=== PATIENT | male | born 1960 | race Caucasian/White ===

== ENCOUNTER 2018-04-24 12:10 | Emergency (ER) | payer BC, OTHER ==
[2018-04-24] MEDS ORDERED: TORAdol 30 mg Injection IV ONE (12:36)
[2018-04-24] MEDS ORDERED: Ativan 2 MG/1 ML VIAL IV ONE (12:36)
--- NOTE | 2018-04-24 12:36 | ERPHSYRPT ---
- History of Present Illness Time Seen by Provider: 04/24/18 12:32 Source: patient, family Exam Limitations: no limitations Patient Subjective Stated Complaint: pt co lower right back pain while sitting in camper,no injury noted, but states he lifts things all the time, Triage Nursing Assessment: pt alert, resp easy, skin w/d/p. skin w/d/p, no difficulty with urnination. pt moaning out, Physician History: The patient is a 58-year-old male with his complaining that he had a sudden onset of right sided mid to lower back pain that began yesterday early evening while he was frying potatoes. He has intermittent mild back pain from time to time. He denies problems urinating or defecating. He denies any sensory problems. He denies nausea or vomiting. He states that the muscle on the right side of his back will spasm every so often with high intensity. He has a history of kidney stones. He says this is nothing like the feeling has with kidney stones. Timing/Duration: yesterday, intermittent, sudden Method of Injury: bending Quality: sharp Back Pain Location: paraspinous muscles (right) Severity of Pain-Max: severe Severity of Pain-Current: severe Modifying Factors: Improves With: nothing Associated Symptoms: lower back pain, muscle spasms, No urinary incontinence, No loss of bowel control, No nausea, No vomiting, No problems urinating, No numbness in legs/feet Previous symptoms: same symptoms as today (previously not as intense ) Allergies/Adverse Reactions: Penicillins Allergy (Verified 04/24/18 12:28) Hx Influenza Vaccination/Date Given: No Hx Pneumococcal Vaccination/Date Given: No Immunizations Up to Date: Yes - Review of Systems Constitutional: No Fever, No Chills Eyes: No Symptoms Ears, Nose, & Throat: No Symptoms Respiratory: No Cough, No Dyspnea Cardiac: No Chest Pain, No Edema, No Syncope Abdominal/Gastrointestinal: No Abdominal Pain, No Nausea, No Vomiting, No Diarrhea Genitourinary Symptoms: No Dysuria Musculoskeletal: Back Pain Skin: No Rash Neurological: No Dizziness, No Focal Weakness, No Sensory Changes Psychological: No Symptoms Endocrine: No Symptoms Hematologic/Lymphatic: No Symptoms Immunological/Allergic: No Symptoms All Other Systems: Reviewed and Negative - Past Medical History Pertinent Past Medical History: Yes Neurological History: Stroke Other Medical History: kidney stone, right knee injury - Past Surgical History Past Surgical History: Yes Gastrointestinal: Hernia Repair Musculoskeletal: Orthopedic Surgery Other Surgical History: ankle - Social History Smoking Status: Never smoker Exposure to second hand smoke: No Drug Use: none Patient Lives Alone: No - Nursing Vital Signs Nursing Vital Signs: Pain Scale Pain Intensity [Back] 10 Pain Intensity 10 - Physical Exam General Appearance: moderate distress Eye Exam: PERRL/EOMI, eyes nml inspection Ears, Nose, Throat Exam: normal ENT inspection Neck Exam: normal inspection, non-tender, supple, full range of motion, No meningismus, No midline tenderness Respiratory Exam: normal breath sounds, lungs clear, No respiratory distress Cardiovascular Exam: regular rate/rhythm, normal heart sounds Gastrointestinal Exam: soft, No tenderness, No mass Rectal Exam: not done Back Exam: muscle spasm (right thoracic and lumbar paraspinous with extreme tenderness) Extremity Exam: normal inspection, normal range of motion, No calf tenderness, No pedal edema Neurologic Exam: alert, oriented x 3, cooperative, azure principal solution specialist II-XII nml as tested, normal mood/affect, nml station & gait, sensation nml, No motor deficits Skin Exam: normal color, warm, dry, No rash SpO2 Interpretation: normal Oxygen Delivery: Room Air Ordered Tests: Medication Summary Discontinued Medications Generic Name Dose Route Start Last Admin Trade Name [place] PRN Reason Stop Dose Admin Dexamethasone Sodium Phosphate 10 mg 04/24/18 12:37 04/24/18 12:41 Decadron 10mg Inj. IV 04/24/18 12:38 10 mg STAT ONE Administration Dexamethasone Sodium Phosphate Confirm 04/24/18 12:40 Decadron 10mg Inj. Administered 04/24/18 12:41 Dose 10 mg .ROUTE .STK-MED ONE Diphenhydramine HCl 50 mg 04/24/18 12:37 04/24/18 12:41 Benadryl 50 Mg/Ml IV 04/24/18 12:38 50 mg STAT ONE Administration Diphenhydramine HCl Confirm 04/24/18 12:40 Benadryl 50 Mg/Ml Administered 04/24/18 12:41 Dose 50 mg .ROUTE .STK-MED ONE Ketorolac Tromethamine 30 mg 04/24/18 12:36 04/24/18 12:42 Toradol 30 Mg Injection IV 04/24/18 12:37 30 mg STAT ONE Administration Ketorolac Tromethamine Confirm 04/24/18 12:40 Toradol 30 Mg Injection Administered 04/24/18 12:41 Dose 30 mg .ROUTE .STK-MED ONE Lorazepam 2 mg 04/24/18 12:36 04/24/18 12:41 Ativan 2 Mg/1 Ml Vial IV 04/24/18 12:37 2 mg STAT ONE Administration Lorazepam Confirm 04/24/18 12:40 Ativan 2 Mg/1 Ml Vial Administered 04/24/18 12:41 Dose 2 mg .ROUTE .STK-MED ONE - Progress Progress: improved Progress Note: 04/24/18 13:37 Pt given decadron 10 mg, toradol 30 mg, ativan 2 mg, and benadryl 50 mg by IV with improvement. Counseled pt/family regarding: diagnosis - Departure Time of Disposition: 13:38 Departure Disposition: Home Clinical Impression: Back muscle spasm Condition: Stable Critical Care Time: No Referrals: ORLANDO GALEANO NP [Primary Care Provider] - Additional Instructions: You have a back spasm on the right side of your back. You were given Decadron 10 mg, Toradol 30 mg, Ativan 2 mg, and Benadryl 50 mg by IV in the ER. Take Flexeril 10 mg every 8 hours as needed. Apply ice to the area for 10-15 minutes for comfort. Restrict from lifting anything heavy, more than 5 pounds, for the next one to 2 days. Follow-up with your primary medical doctor as needed. Prescriptions: Cyclobenzaprine HCl [Flexeril] 10 mg PO Q8H PRN PRN #10 tablet PRN Reason: Muscle Spasms
[2018-04-24] MEDS ORDERED: DECADRON 10MG INJ. IV ONE (12:37)
[2018-04-24] MEDS ORDERED: BENADRYL 50 MG/ML IV ONE (12:37)
[2018-04-24] MEDS ORDERED: TORAdol 30 mg Injection ONE (12:40)
[2018-04-24] MEDS ORDERED: Ativan 2 MG/1 ML VIAL ONE (12:40)
[2018-04-24] MEDS ORDERED: BENADRYL 50 MG/ML ONE (12:40)
[2018-04-24] MEDS ORDERED: DECADRON 10MG INJ. ONE (12:40)
[2018-04-24 14:06] VITALS: O2SAT 94
[2018-04-24 15:14] VITALS: BP 116/66; PULSE 72
== END 2018-04-24 15:19 | disposition home or self-care (01) ==
LOC: ED 12:10
DX: M62.830 Muscle spasm of back (principal); M54.5 Low back pain; Z87.442 Personal history of urinary calculi
CPT/HCPCS: 36000; 96374; 96375; 99284; J1100; J1200; J1885; J2060

== ENCOUNTER 2022-10-29 14:23 | Day surgery (SDC) | payer BC ==
[2022-10-29] MEDS ORDERED: Depo-Medrol 40 MG/ML IM ONE (14:24)
[2022-10-29] MEDS ORDERED: BUPIVACAINE 0.5% VIAL IJ ONE (14:24)
[2022-10-29] MEDS ORDERED: LIDOCAINE HCL 1% 50 MG/5 ML VL PF IJ ONE (14:24)
--- NOTE | 2022-10-29 19:13 | XRAY ---
Indication: Right SI joint injection. Intraoperative fluoroscopy provided for 10 seconds. 2 digital spot image submitted for interpretation demonstrates posterior needle tip projecting over the right SI joint. Correlate with intraoperative findings/report.
--- NOTE | 2022-10-30 09:00 | XRAY ---
10 seconds of fluoroscopy was used in surgery for a right sacroiliac joint injection.
== END 2022-10-29 17:13 | disposition home or self-care (01) ==
LOC: SDC-PAIN 14:23
PROVIDERS: ATTEND Psychiatry & Neurology Pain Medicine
DX: M46.1 Sacroiliitis, not elsewhere classified (principal); Z79.899 Other long term (current) drug therapy
CPT/HCPCS: 27096; 72170; 77002; 82947; J1030; J2001; G0260

== ENCOUNTER 2023-05-08 13:14 | Emergency (ER) | payer BC ==
[2023-05-08 13:25] VITALS: TEMP 97.5
[2023-05-08] MEDS ORDERED: solu-MEDROL 125 MG, Sterile H2O 10 ml 2 ML IV ONE ×2 (13:47)
[2023-05-08] MEDS ORDERED: PROVENTIL 2.5 MG/3 ML NEB IH ONE ×2 (13:47→14:06)
[2023-05-08 13:53] LABS: Absolute Neutrophil Ct (ANC) 5.56 x10^3/uL (1.4-6.9); BASOPHIL % 0.9 % (0.0-0.4); Basophil (Absolute #) 0.08 x10^3/uL (0-0.4); Eosinophil % 1.7 % (0.00-5.0); Eosinophil (Absolute #) 0.15 x10^3/uL (0-0.5); Hematocrit 47.6 % (42-50); Hemoglobin 15.6 g/dL (12.5-18.0); IMMATURE GRAN # 0.06 x10^3u/L (0.00-0.03); IMMATURE GRAN % 0.7 % (0.00-0.4); Lymphocyte (Absolute #) 2.17 x10^3/uL (1.0-4.6); Mean Corpuscular Hemoglobin 29.5 pg (26-32); Mean Corpuscular Hgb Concent. 32.8 g/dL (32-36); Mean Platelet Volume 10.6 fL (7.5-11.0); Monocyte (Absolute #) 0.67 x10^3/uL (0.0-1.3); Monocytes % 7.7 % (0.0-12.0); Platelet Count 296 x10^3/uL (150-450); Red Blood Count 5.29 x10^6/uL (4.1-5.6); Red Cell Distribution Width 12.5 % (11.5-14.0); White Blood Count 8.7 x10^3/uL (4.0-10.5)
[2023-05-08] MEDS ORDERED: Sterile H2O 10 ml IJ ONE (14:08)
[2023-05-08] MEDS ORDERED: solu-MEDROL ONE (14:08)
[2023-05-08 14:11] LABS: ALBUMIN 4.3 g/dL (3.5-5.0); ALKALINE PHOSPHATASE 107 U/L (38-126); BLOOD UREA NITROGEN 25 mg/dL (9-20); CHLORIDE 108 mmol/L (98-107); Calcium 9.3 mg/dL (8.4-10.2); Carbon Dioxide 18 mmol/L (22-30); Creatinine 1 1.24 mg/dL (0.66-1.25); EST GLOMERULAR FILTRATION RATE > 60.0 ML/MIN; Glucose 164 mg/dL (74-106); SGOT/AST 37 U/L (17-59); SGPT/ALT 36 U/L (0-50); SODIUM 142 mmol/L (137-145); Total Protein 7.5 g/dL (6.3-8.2)
[2023-05-08] MEDS ORDERED: Magnesium 1 Gm / 100 Ml D5W*** 100 ML IV ONE ×2 (14:36→15:12)
[2023-05-08] MEDS: Magnesium 1 Gm / 100 Ml D5W*** 100 ML IV SCH ×2 (14:37→15:27)
[2023-05-08 15:01] LABS: INFLUENZA A NEGATIVE (NEGATIVE); INFLUENZA B NEGATIVE (NEGATIVE); RESPIRATORY SYNCTIAL VIRUS NEGATIVE (NEGATIVE); SARS-CoV-2 Xpert Express NEGATIVE (NEGATIVE)
--- NOTE | 2023-05-08 15:41 | XRAY ---
Indication: Short of breath. Pulmonary embolus. Multiple contiguous axial images obtained through the chest using 100cc Isovue 370 contrast and PE protocol. Comparison: None Good opacification of the pulmonary arteries. Occluding and nonoccluding pulmonary emboli seen in the distal left and right main pulmonary arteries extending into all lobar and segmental branches bilaterally. Heart is not enlarged. Aorta is normal in course and caliber. A few small subcarinal and bilateral hilar calcified nodes. No pathologic mediastinal/hilar lymphadenopathy. Lungs demonstrate minimal dependent atelectasis and tiny lingula calcified granuloma. No suspicious pulmonary mass/nodule, infiltrate, effusion, or pneumothorax. Bony thorax intact with mild/moderate degenerative changes throughout the spine. Limited upper abdomen demonstrates fatty liver. Impression: 1. Occluding and nonoccluding bilateral pulmonary emboli as detailed. No distal pulmonary infarct. 2. Chronic findings including degenerative spondylosis, fatty liver, and old granulomatous disease. Comment: Telephone report was given to the ordering clinician Dr. Honeycutt at 1533 hrs. on May 08, 2023.
--- NOTE | 2023-05-08 15:44 | ERPHSYRPT ---
- History of Present Illness Time Seen by Provider: 05/08/23 15:41 Source: patient Exam Limitations: no limitations Patient Subjective Stated Complaint: pt here for sob for about 5 days now, with cough,pain to chest, he states it all started after neuroton was increased Triage Nursing Assessment: pt alert, uable to walk back, arrived per wc, resp labored, sob with excertion. chest clear. Physician History: Patient is a 63-year-old male presents to our ED for evaluation of shortness of breath x5 days. Symptoms have been progressive. Patient states that shortness of breath started after his Neurontin was increased from 900 to 2400/day. Shortness of breath is associated with chest pain. Chest pain worse with farhat athing. Upon arrival to our ED patient was ambulatory but he was observed to be in mild respiratory distress and hypoxic. Patient has a history of asthma. Patient wheezing throughout both lung solomon. Patient placed on 2 L nasal cannula. Patient's symptoms are progressive. Symptoms are moderate in intensity. No specific worsening improving factors. Patient denies a history of the same. He voices no other complaints or concerns at this time. Portions of this note were created with voice recognition technology. There may be grammatical, spelling, punctuation or sound alike errors Timing/Duration: day(s) (5 days ago) Severity: moderate Modifying Factors: Improves With: other (Exertion) Associated Symptoms: shortness of breath, chest pain Allergies/Adverse Reactions: Penicillins Allergy (Verified 05/08/23 13:17) Home Medications: Atorvastatin Calcium [Lipitor] 10 mg PO DAILY 05/08/23 [History] Celecoxib 100 mg [celeBREX 100 MG] 100 mg PO DAILY 05/08/23 [History] Diclofenac Sodium/Capsaicin [Nudiclo Tabpak] 1 ea DAILY 05/08/23 [History] Gabapentin [Neurontin ] 400 mg PO DAILY 05/08/23 [History] Metoprolol Succinate 50 mg [Toprol Xl 50 MG] 50 mg PO DAILY 05/08/23 [History] PANTOPRAZOLE 40 mg Tablet [Protonix 40MG Tablet] 40 mg PO QAM 05/08/23 [History] Sertraline HCl 50 mg [Zoloft 50 mg Tablet] 50 mg PO DAILY 05/08/23 [History] Hx Tetanus, Diphtheria Vaccination/Date Given: No Hx Influenza Vaccination/Date Given: No Hx Pneumococcal Vaccination/Date Given: Yes Immunizations Up to Date: Yes Travel Risk - International Travel Have you traveled outside of the country in past 3 weeks: No - Coronavirus Screening Are you exhibiting any of the following symptoms?: No Close contact with a COVID-19 positive Pt in past 14-21 Days: No - Vaccine Status Have you recieved a Covid-19 vaccination: No - Review of Systems Constitutional: No Symptoms, No Fever, No Chills Eyes: No Symptoms Ears, Nose, & Throat: No Symptoms Respiratory: No Symptoms, No Cough, No Dyspnea Cardiac: No Symptoms, No Chest Pain, No Edema, No Syncope Abdominal/Gastrointestinal: No Symptoms, No Abdominal Pain, No Nausea, No Vomiting, No Diarrhea Genitourinary Symptoms: No Symptoms, No Dysuria Musculoskeletal: No Symptoms, No Back Pain, No Neck Pain Skin: No Symptoms, No Rash Neurological: No Symptoms, No Dizziness, No Focal Weakness, No Sensory Changes Psychological: No Symptoms Endocrine: No Symptoms Hematologic/Lymphatic: No Symptoms Immunological/Allergic: No Symptoms All Other Systems: Reviewed and Negative - Past Medical History Pertinent Past Medical History: Yes Neurological History: No Pertinent History Cardiac History: High Cholesterol, Hypertension Respiratory History: Asthma, Tuberculosis, Other Endocrine Medical History: Other Musculoskeletal History: Osteoarthritis Other Medical History: NOT VACCINATED FOR COVID. HAD TB IN 1974. HERNIA SURGERY 1987. ANKLE SPACERS INSTALLED IN 1994 DUE TO ARTHRITIS. - Past Surgical History Past Surgical History: Yes Gastrointestinal: Hernia Repair Musculoskeletal: Orthopedic Surgery Other Surgical History: ankle - Social History Smoking Status: Former smoker Exposure to second hand smoke: No Drug Use: none Patient Lives Alone: No - Nursing Vital Signs Nursing Vital Signs: Initial Vital Signs O2 Sat by Pulse Oximetry 91 L 05/08/23 13:15 Pain Scale Pain Intensity 3 - Physical Exam General Appearance: no apparent distress, alert Eye Exam: PERRL/EOMI, eyes nml inspection Ears, Nose, Throat Exam: normal ENT inspection, TMs normal, pharynx normal, moist mucous membranes Neck Exam: normal inspection, non-tender, supple, full range of motion Respiratory Exam: normal breath sounds, lungs clear, No respiratory distress Cardiovascular Exam: regular rate/rhythm, normal heart sounds, normal peripheral pulses Gastrointestinal/Abdomen Exam: soft, normal bowel sounds, No tenderness, No mass Back Exam: normal inspection, normal range of motion, No CVA tenderness, No vertebral tenderness Extremity Exam: normal inspection, normal range of motion, pelvis stable Neurologic Exam: alert, oriented x 3, cooperative, normal mood/affect, nml cerebellar function, nml station & gait, sensation nml, No motor deficits Skin Exam: normal color, warm, dry, No rash Lymphatic Exam: No adenopathy SpO2 Interpretation: normal SpO2: 91 O2 Delivery: Room Air - Course Nursing assessment & vital signs reviewed: Yes EKG Interpreted by Me: RATE (99), Sinus Rhythm, NORMAL AXIS, NORMAL INTERVALS - CT Exams Chest CT Interpretation: Tele-radiologist Report (Occluding and nonoccluding bilateral pulmonary emboli no distal pulmonary infarct chronic findings including degenerative spondylosis fatty liver and old granulomatous disease.) Ordered Tests: Active Orders 24 hr Category Date Time Status Solid Fiber Paster Operator STAT Care 05/08/23 13:47 Completed EKG-ER Only STAT Care 05/08/23 13:46 Completed IV Insertion STAT Care 05/08/23 13:46 Completed Pulse Oximetry (ED) STAT Care 05/08/23 13:46 Completed CHEST WITH CONTRAST [CT] Stat Exams 05/08/23 14:41 Completed BLOOD CULTURE Stat Lab 05/08/23 14:12 Received CBC Stat Lab 05/08/23 15:47 Ordered CBC W DIFF Stat Lab 05/08/23 13:30 Completed CMP Stat Lab 05/08/23 13:30 Completed D-DIMER QUANTITATIVE Stat Lab 05/08/23 13:30 Completed Lactic Acid Stat Lab 05/08/23 14:19 Completed NT PRO BNPII Stat Lab 05/08/23 13:30 Completed PROTIME WITH INR Stat Lab 05/08/23 15:47 Ordered PT INR [PROTIME WITH INR] Stat Lab 05/08/23 13:30 Completed PTT Q4H Lab 05/08/23 16:00 Ordered PTT Q4H Lab 05/08/23 20:00 Ordered PTT Stat Lab 05/08/23 13:30 Completed PTT Stat Lab 05/08/23 15:47 Ordered TROPONIN Q4H Lab 05/08/23 13:30 Completed TROPONIN Q4H Lab 05/08/23 18:00 Ordered TROPONIN Q4H Lab 05/08/23 22:00 Ordered Medication Summary Discontinued Medications Generic Name Dose Route Start Last Admin Trade Name Freq PRN Reason Stop Dose Admin Albuterol Sulfate 2.5 mg 05/08/23 13:47 05/08/23 14:11 Albuterol Sulfate 2.5 Mg/3 Ml Neb IH 05/08/23 13:48 2.5 mg STAT ONE Administration Albuterol Sulfate Confirm 05/08/23 14:06 Albuterol Sulfate 2.5 Mg/3 Ml Neb Administered 05/08/23 14:07 Dose 2.5 mg IH .STK-MED ONE Methylprednisolone Sodium 0 mg 05/08/23 13:47 05/08/23 14:10 Succinate 125 mg/ Sterile IV 05/08/23 13:48 125 mg Water 2 ml STAT ONE Administration Heparin Sodium (Beef Lung) 5,000 unit 05/08/23 15:47 05/08/23 16:05 Heparin 5000 Units/0.5 Ml 5,000 Unit/0.5 Ml Syr IV 05/08/23 15:48 5,000 unit STAT STA Administration Heparin Sodium (Beef Lung) Confirm 05/08/23 16:04 Heparin 5000 Units/0.5 Ml 5,000 Unit/0.5 Ml Syr Administered 05/08/23 16:05 Dose 5,000 unit .ROUTE .STK-MED ONE Magnesium Sulfate/Dextrose 100 mls @ 100 mls/hr 05/08/23 14:15 05/08/23 15:27 Magnesium 1 Gm / 100 Ml D5w IV 05/08/23 16:14 100 mls/hr Q1H FLOR Administration Heparin Sodium/Dextrose 25,000 units in 250 mls @ 16.92 mls/hr 05/08/23 16:00 05/08/23 16:06 Heparin 25,000 Units/D5w: Use Order Set [place] IV 06/07/23 15:59 7.09 units/kg/hr .[id number] FLOR 10 mls/hr Administration Protocol 12 UNITS/KG/HR Magnesium Sulfate/Dextrose Confirm 05/08/23 14:36 Magnesium 1 Gm / 100 Ml D5w Administered 05/08/23 14:37 Dose 100 mls @ ud IV .STK-MED ONE Magnesium Sulfate/Dextrose Confirm 05/08/23 15:12 Magnesium 1 Gm / 100 Ml D5w Administered 05/08/23 15:13 Dose 100 mls @ ud IV .STK-MED ONE Heparin Sodium/Dextrose Confirm 05/08/23 16:04 Heparin 25,000 Units/D5w: Use Order Set [place] Administered 05/08/23 16:05 Dose 25,000 units in 250 mls @ ud IV .STK-MED ONE Methylprednisolone Sodium Succinate Confirm 05/08/23 14:08 Methylprednis Sod Succ 125 Mg/2 Ml Vial Administered 05/08/23 14:09 Dose 125 mg .ROUTE .STK-MED ONE Sterile Water Confirm 05/08/23 14:08 Water For Injection,Sterile 10 Ml Vial Administered 05/08/23 14:09 Dose 10 ml IJ .STK-MED ONE Lab/Rad Data: Laboratory Result Diagrams 05/08/23 13:30 05/08/23 13:30 Laboratory Results 05/08/23 05/08/23 05/08/23 Range/Units 14:19 14:11 13:30 WBC (4.0-10.5) x10^3/uL RBC (4.1-5.6) x10^6/uL Hgb (12.5-18.0) g/dL Hct (42-50) % MCV (78-100) fL MCH (26-32) pg MCHC (32-36) g/dL RDW (11.5-14.0) % Plt Count (150-450) x10^3/uL MPV (7.5-11.0) fL Gran % (36.0-66.0) % Immature Gran % (Auto) (0.00-0.4) % Nucleat RBC Rel Count (0.00-0.1) % Eos # (Auto) (0-0.5) x10^3/uL Immature Gran # (Auto) (0.00-0.03) x10^3u/L Absolute Lymphs (auto) (1.0-4.6) x10^3/uL Absolute Monos (auto) (0.0-1.3) x10^3/uL Absolute Nucleated RBC (0.00-0.01) x10^3u/L Lymphocytes % (24.0-44.0) % Monocytes % (0.0-12.0) % Eosinophils % (0.00-5.0) % Basophils % (0.0-0.4) % Absolute Granulocytes (1.4-6.9) x10^3/uL Basophils # (0-0.4) x10^3/uL PT 11.1 (9.4-12.5) SECONDS INR 1.02 (0.8-3.0) APTT 27.7 (25.1-36.5) SECONDS D-Dimer (0.0-0.50) mg/L Sodium (137-145) mmol/L Potassium (3.5-5.1) mmol/L Chloride (98-107) mmol/L Carbon Dioxide (22-30) mmol/L Anion Gap (5-15) MEQ/L BUN (9-20) mg/dL Creatinine (0.66-1.25) mg/dL Estimated GFR ML/MIN Glucose (74-106) mg/dL Lactic Acid 2.7 H (0.4-2.0) Calcium (8.4-10.2) mg/dL Total Bilirubin (0.2-1.3) mg/dL AST (17-59) U/L ALT (0-50) U/L Alkaline Phosphatase (38-126) U/L Troponin I (0.000-0.034) ng/mL NT-Pro-B Natriuret Pep (<300) pg/mL Serum Total Protein (6.3-8.2) g/dL Albumin (3.5-5.0) g/dL Influenza Type A Ag NEGATIVE (NEGATIVE) Influenza Type B Ag NEGATIVE (NEGATIVE) RSV (PCR) NEGATIVE (NEGATIVE) SARS-CoV-2 (PCR) NEGATIVE (NEGATIVE) 05/08/23 05/08/23 05/08/23 Range/Units 13:30 13:30 13:30 WBC (4.0-10.5) x10^3/uL RBC (4.1-5.6) x10^6/uL Hgb (12.5-18.0) g/dL Hct (42-50) % MCV (78-100) fL MCH (26-32) pg MCHC (32-36) g/dL RDW (11.5-14.0) % Plt Count (150-450) x10^3/uL MPV (7.5-11.0) fL Gran % (36.0-66.0) % Immature Gran % (Auto) (0.00-0.4) % Nucleat RBC Rel Count (0.00-0.1) % Eos # (Auto) (0-0.5) x10^3/uL Immature Gran # (Auto) (0.00-0.03) x10^3u/L Absolute Lymphs (auto) (1.0-4.6) x10^3/uL Absolute Monos (auto) (0.0-1.3) x10^3/uL Absolute Nucleated RBC (0.00-0.01) x10^3u/L Lymphocytes % (24.0-44.0) % Monocytes % (0.0-12.0) % Eosinophils % (0.00-5.0) % Basophils % (0.0-0.4) % Absolute Granulocytes (1.4-6.9) x10^3/uL Basophils # (0-0.4) x10^3/uL PT (9.4-12.5) SECONDS INR (0.8-3.0) APTT (25.1-36.5) SECONDS D-Dimer 6.06 H* (0.0-0.50) mg/L Sodium (137-145) mmol/L Potassium (3.5-5.1) mmol/L Chloride (98-107) mmol/L Carbon Dioxide (22-30) mmol/L Anion Gap (5-15) MEQ/L BUN (9-20) mg/dL Creatinine (0.66-1.25) mg/dL Estimated GFR ML/MIN Glucose (74-106) mg/dL Lactic Acid (0.4-2.0) Calcium (8.4-10.2) mg/dL Total Bilirubin (0.2-1.3) mg/dL AST (17-59) U/L ALT (0-50) U/L Alkaline Phosphatase (38-126) U/L Troponin I 0.043 H* (0.000-0.034) ng/mL NT-Pro-B Natriuret Pep 2580 (<300) pg/mL Serum Total Protein (6.3-8.2) g/dL Albumin (3.5-5.0) g/dL Influenza Type A Ag (NEGATIVE) Influenza Type B Ag (NEGATIVE) RSV (PCR) (NEGATIVE) SARS-CoV-2 (PCR) (NEGATIVE) 05/08/23 05/08/23 Range/Units 13:30 13:30 WBC 8.7 (4.0-10.5) x10^3/uL RBC 5.29 (4.1-5.6) x10^6/uL Hgb 15.6 (12.5-18.0) g/dL Hct 47.6 (42-50) % MCV 90.0 (78-100) fL MCH 29.5 (26-32) pg MCHC 32.8 (32-36) g/dL RDW 12.5 (11.5-14.0) % Plt Count 296 (150-450) x10^3/uL MPV 10.6 (7.5-11.0) fL Gran % 64.0 (36.0-66.0) % Immature Gran % (Auto) 0.7 H (0.00-0.4) % Nucleat RBC Rel Count 0.0 (0.00-0.1) % Eos # (Auto) 0.15 (0-0.5) x10^3/uL Immature Gran # (Auto) 0.06 H (0.00-0.03) x10^3u/L Absolute Lymphs (auto) 2.17 (1.0-4.6) x10^3/uL Absolute Monos (auto) 0.67 (0.0-1.3) x10^3/uL Absolute Nucleated RBC 0.00 (0.00-0.01) x10^3u/L Lymphocytes % 25.0 (24.0-44.0) % Monocytes % 7.7 (0.0-12.0) % Eosinophils % 1.7 (0.00-5.0) % Basophils % 0.9 (0.0-0.4) % Absolute Granulocytes 5.56 (1.4-6.9) x10^3/uL Basophils # 0.08 (0-0.4) x10^3/uL PT (9.4-12.5) SECONDS INR (0.8-3.0) APTT (25.1-36.5) SECONDS D-Dimer (0.0-0.50) mg/L Sodium 142 (137-145) mmol/L Potassium 4.0 (3.5-5.1) mmol/L Chloride 108 H (98-107) mmol/L Carbon Dioxide 18 L (22-30) mmol/L Anion Gap 20.0 H (5-15) MEQ/L BUN 25 H (9-20) mg/dL Creatinine 1.24 (0.66-1.25) mg/dL Estimated GFR > 60.0 ML/MIN Glucose 164 H (74-106) mg/dL Lactic Acid (0.4-2.0) Calcium 9.3 (8.4-10.2) mg/dL Total Bilirubin 1.00 (0.2-1.3) mg/dL AST 37 (17-59) U/L ALT 36 (0-50) U/L Alkaline Phosphatase 107 (38-126) U/L Troponin I (0.000-0.034) ng/mL NT-Pro-B Natriuret Pep (<300) pg/mL Serum Total Protein 7.5 (6.3-8.2) g/dL Albumin 4.3 (3.5-5.0) g/dL Influenza Type A Ag (NEGATIVE) Influenza Type B Ag (NEGATIVE) RSV (PCR) (NEGATIVE) SARS-CoV-2 (PCR) (NEGATIVE) - Progress Progress: improved Progress Note: Case discussed with interventionalists at [facility] who accepts transfer at 4:11 PM. 05/08/23 16:11 Patient is a 63-year-old male presents to our ED for evaluation of shortness of breath and chest pain. Symptoms have been progressive over the past 5 days. Upon arrival patient was hypoxic in mild respiratory distress. Test include CBC CMP COVID. No significant findings on either test. COVID test negative. D- dimer positive at 6.06. Troponin elevated at 0.043. Lactic acid elevated at 2.7. CTA chest completed revealed bilateral pulmonary emboli. Troponin level elevated secondary to right heart strain. Heparin drip initiated. Patient will be transferred to [facility] for thrombectomy. Plan of care discussed with patient. He agrees to transfer to [facility] for further evaluation and treatment. at bedside. They voiced no other complaints or concerns at this time. Portions of this note were created with voice recognition technology. There may be grammatical, spelling, punctuation or sound alike errors Complexity of problem addressed is high, threat to bodily function. Patient in respiratory distress upon arrival. Medical care time is 3 hours. Emergent intervention indicated to prevent further deterioration. Patient received breathing treatments, albuterol magnesium Solu-Medrol to treat patient's asthma exacerbation which is superimposed over the PE. Complexity of data reviewed and analyzed is extensive. Test ordered. Test reviewed and analyzed. Clinical correlation made between the test results imaging results and history and physical examination. Management discussed with interventional radiologist from [facility] with who agrees with plan of care. Risk complication and or risk morbidity/mortality patient management is high. Patient will require hospitalization/transfer to higher level of care. Vital stable at this time. Time spent to transfer for patient is approximately 30 minutes. Plan of care established for shared decision making. Portions of this note were created with voice recognition technology. There may be grammatical, spelling, punctuation or sound alike errors 05/08/23 16:[address] Other (Zay Long) Will see patient in: other (Transfer to [facility]) Counseled pt/family regarding: lab results, diagnosis, rad results - Departure Departure Disposition: Home Clinical Impression: Wheezing, Shortness of breath, Hypoxia, Submassive pulmonary embolism, Right heart strain, Elevated troponin, Fatty liver, Degenerative spondylosis, Respiratory distress, Asthma exacerbation, Lactic acidosis Condition: Stable Critical Care Time: No Referrals: PARVEZ BERMEO DO [Primary Care Provider] - Follow up/PCP as directed
[2023-05-08] MEDS ORDERED: HEPARIN 5000 UNITS/0.5 ML (HIGH RISK MED) IV STA (15:47)
[2023-05-08 15:54] LABS: INR 1.02 (0.8-3.0); PROTIME 11.1 SECONDS (9.4-12.5); PTT 27.7 SECONDS (25.1-36.5)
[2023-05-08] MEDS ORDERED: Heparin 25,000 units/D5W: USE ORDER SET PROTO 25,000 UNITS/250 ML BAG IV SCH (16:00)
[2023-05-08] MEDS ORDERED: Heparin 25,000 units/D5W: USE ORDER SET PROTO 25,000 UNITS/250 ML BAG IV ONE (16:04)
[2023-05-08] MEDS ORDERED: HEPARIN 5000 UNITS/0.5 ML (HIGH RISK MED) ONE (16:04)
[2023-05-08 16:37] VITALS: BP 162/84; PULSE 94; RESP 22
[2023-05-08 17:33] VITALS: O2SAT 91
== END 2023-05-08 17:28 | disposition short-term general hospital (02) ==
LOC: ED 13:14
DX: I26.99 Other pulmonary embolism without acute cor pulmonale (principal); R06.03 Acute respiratory distress; R06.02 Shortness of breath; R09.02 Hypoxemia; J45.901 Unspecified asthma with (acute) exacerbation; I51.89 Other ill-defined heart diseases; R77.8 Other specified abnormalities of plasma proteins; K76.0 Fatty (change of) liver, not elsewhere classified; M47.9 Spondylosis, unspecified; E87.20 Acidosis, unspecified; R07.9 Chest pain, unspecified; E78.5 Hyperlipidemia, unspecified; I10 Essential (primary) hypertension; Z79.899 Other long term (current) drug therapy; Z28.310 Unvaccinated for COVID-19
CPT/HCPCS: 0241U; 36000; 36415; 71260; 80053; 83605; 83880; 84484; 85025; 85379; 85610; 85730; 87040; 93005; 93041; 94640; 94760; 96365; 96374; 96375; 99285; 96366; J1644; J2930; J3475; J7609; A9270-GY

== ENCOUNTER 2023-11-28 20:41 | Observation (INO) | payer BC ==
[2023-11-28] MEDS ORDERED: Zofran 4 MG/2 ML VIAL ONE (21:35)
[2023-11-28] MEDS ORDERED: MORPHINE SULFATE 2 MG INJ ONE (21:35)
[2023-11-28] MEDS ORDERED: Sodium Chloride 0.9% 1000 ML 1,000 ML ONE (21:35)
--- NOTE | 2023-11-28 21:35 | ERPHSYRPT ---
- History of Present Illness Time Seen by Provider: 11/28/23 21:20 Historian: patient Exam Limitations: no limitations Patient Subjective Stated Complaint: vomiting and diarrhea since 2am Triage Nursing Assessment: pt ambulated into ER without diff, at bedside. Pt c/o vomiting and diarrhea since 2am this morning. Abd lg, firm with active b s x4 quad, tender on palpation. Pt did eat prime rib last night that was rare and was sick 2 hours after eating it. Physician History: For the past 19 hours pt has had vomiting without blood, diarrhea without blood and sharp periumbilical abdominal pain up to 8/10 in severity; denies chest pain, shortness of air, fever. Allergies/Adverse Reactions: Penicillins Allergy (Verified 11/28/23 21:04) Home Medications: Atorvastatin Calcium [Lipitor] 10 mg PO DAILY 05/08/23 [History] Gabapentin [Neurontin ] 300 mg PO TID 05/08/23 [History] PANTOPRAZOLE 40 mg Tablet [Protonix 40MG Tablet] 40 mg PO HS 05/08/23 [History] Sertraline HCl 50 mg [Zoloft 50 mg Tablet] 100 mg PO DAILY 05/08/23 [History] Apixaban [Eliquis] 5 mg PO BID 11/28/23 [History] Fluticasone/Umeclidin/Vilanter [Trelegy Ellipta 200-62.5-25] 1 puff IH DAILY 11/28/23 [History] Lisinopril 10 mg [Zestril 10 MG] 10 mg PO DAILY 11/28/23 [History] Hx Tetanus, Diphtheria Vaccination/Date Given: Yes Hx Influenza Vaccination/Date Given: No Hx Pneumococcal Vaccination/Date Given: Yes Immunizations Up to Date: No Travel Risk - International Travel Have you traveled outside of the country in past 3 weeks: No - Emerging Infectious Disease Are you exhibiting symptoms associated with any current EIDs: Yes Symptoms: Abdominal Pain, Diarrhea, Vomitting - Review of Systems Constitutional: No Fever Respiratory: No Dyspnea Cardiac: No Chest Pain Abdominal/Gastrointestinal: Abdominal Pain, Nausea, Vomiting, Diarrhea Genitourinary Symptoms: No Dysuria Neurological: No Headache - Past Medical History Pertinent Past Medical History: Yes Neurological History: Peripheral Neuropathy Cardiac History: High Cholesterol, Hypertension Respiratory History: Asthma, Pulmonary Embolism, Tuberculosis, Other Endocrine Medical History: Other Musculoskeletal History: Osteoarthritis GI Medical History: GERD, Hernia Other Medical History: NOT VACCINATED FOR COVID. HAD TB IN 1974. HERNIA SURGERY 1987. ANKLE SPACERS INSTALLED IN 1994 DUE TO ARTHRITIS. Lung function is only at 19%. - Past Surgical History Past Surgical History: Yes Gastrointestinal: Hernia Repair Musculoskeletal: Orthopedic Surgery Other Surgical History: ankle, laprascopic rt knee meniscus surgery - Social History Smoking Status: Former smoker Exposure to second hand smoke: No Drug Use: none Patient Lives Alone: No - Nursing Vital Signs Nursing Vital Signs: Initial Vital Signs Temperature 97.1 F 11/28/23 20:50 Pulse Rate 88 11/28/23 20:50 Respiratory Rate 20 11/28/23 20:50 Blood Pressure 161/104 11/28/23 20:50 O2 Sat by Pulse Oximetry 94 L 11/28/23 20:50 Pain Scale Pain Intensity 1 - Physical Exam General Appearance: alert Eye Exam: eyes nml inspection Ears, Nose, Throat Exam: TMs normal, pharynx normal, moist mucous membranes Neck Exam: normal inspection Respiratory Exam: lungs clear Cardiovascular Exam: normal heart sounds Gastrointestinal/Abdomen Exam: tenderness (mild diffuse), other (B.S. moderately hyperactive and normotonic) Extremity Exam: No pedal edema Neurologic Exam: alert, cooperative Skin Exam: warm, dry SpO2 Interpretation: normal SpO2: 94 O2 Delivery: Room Air - Course Nursing assessment & vital signs reviewed: Yes - CT Exams Abdomen/Pelvis CT Interpretation: Tele-radiologist Report (See report) Ordered Tests: Active Orders 24 hr Category Date Time Status IV Insertion STAT Care 11/28/23 21:31 Active ABDOMEN AND PELVIS W/0 CONTRAS [CT] Stat Exams 11/28/23 21:31 Completed AMYLASE Stat Lab 11/28/23 21:20 Completed CBC W DIFF Stat Lab 11/28/23 21:20 Completed CMP Stat Lab 11/28/23 21:20 Completed LIPASE Stat Lab 11/28/23 21:20 Completed MAGNESIUM Stat Lab 11/28/23 21:20 Completed UA W/RFX UR CULTURE Stat Lab 11/28/23 22:09 Completed Medication Summary Discontinued Medications Generic Name Dose Route Start Last Admin Trade Name Freq PRN Reason Stop Dose Admin Sodium Chloride 1,000 mls @ 999 mls/hr 11/28/23 21:31 11/28/23 22:37 Sodium Chloride 0.9% 1000 Ml IV 11/28/23 22:31 Infused .Q1H1M STA Infusion Sodium Chloride Confirm 11/28/23 21:35 Sodium Chloride 0.9% 1000 Ml Administered 11/28/23 21:36 Dose 1,000 mls @ ud .ROUTE .STK-MED ONE Morphine Sulfate 1 mg 11/28/23 21:31 11/28/23 21:40 Morphine Sulfate 2 Mg/Ml Inj IV 11/28/23 21:32 1 mg STAT ONE Administration Morphine Sulfate Confirm 11/28/23 21:35 Morphine Sulfate 2 Mg/Ml Inj Administered 11/28/23 21:36 Dose 2 mg .ROUTE .STK-MED ONE Ondansetron HCl 4 mg 11/28/23 21:31 11/28/23 21:40 Ondansetron Hcl 4 Mg/2 Ml Vial IV 11/28/23 21:32 4 mg STAT ONE Administration Ondansetron HCl Confirm 11/28/23 21:35 Ondansetron Hcl 4 Mg/2 Ml Vial Administered 11/28/23 21:36 Dose 4 mg .ROUTE .STK-MED ONE Lab/Rad Data: Laboratory Result Diagrams 11/28/23 21:20 11/28/23 21:20 Laboratory Results 11/28/23 11/28/23 11/28/23 Range/Units 22:09 21:20 21:20 WBC (4.0-10.5) x10^3/uL RBC (4.1-5.6) x10^6/uL Hgb (12.5-18.0) g/dL Hct (42-50) % MCV (78-100) fL MCH (26-32) pg MCHC (32-36) g/dL RDW (11.5-14.0) % Plt Count (150-450) x10^3/uL MPV (7.5-11.0) fL Gran % (36.0-66.0) % Immature Gran % (Auto) (0.00-0.4) % Nucleat RBC Rel Count (0.00-0.1) % Eos # (Auto) (0-0.5) x10^3/uL Immature Gran # (Auto) (0.00-0.03) x10^3u/L Absolute Lymphs (auto) (1.0-4.6) x10^3/uL Absolute Monos (auto) (0.0-1.3) x10^3/uL Absolute Nucleated RBC (0.00-0.01) x10^3u/L Lymphocytes % (24.0-44.0) % Monocytes % (0.0-12.0) % Eosinophils % (0.00-5.0) % Basophils % (0.0-0.4) % Absolute Granulocytes (1.4-6.9) x10^3/uL Basophils # (0-0.4) x10^3/uL Sodium 138 (135-145) mmol/L Potassium 4.1 (3.5-5.1) mmol/L Chloride 104 (98-107) mmol/L Carbon Dioxide 23 (22-30) mmol/L Anion Gap 15.2 H (5-15) MEQ/L BUN 20 (9-20) mg/dL Creatinine 1.21 (0.66-1.25) mg/dL Estimated GFR 67.3 ML/MIN Glucose 127 H (74-106) mg/dL Calcium 9.8 (8.4-10.2) mg/dL Magnesium 1.8 (1.6-2.3) mg/dL Total Bilirubin 0.60 (0.2-1.3) mg/dL AST 33 (17-59) U/L ALT 37 (0-50) U/L Alkaline Phosphatase 97 (38-126) U/L Serum Total Protein 8.4 H (6.3-8.2) g/dL Albumin 4.5 (3.5-5.0) g/dL Amylase 102 (30-110) U/L Lipase 77 (23-300) U/L Urine Color Dark Yellow (Yellow) Urine Appearance Clear (Clear) Urine pH 5.5 (4.6-8.0) Ur Specific [place] >=1.030 A (1.005-1.030) Urine Protein 100 A (Negative) Urine Glucose (UA) Negative (Negative) mg/dL Urine Ketones 40 A (Negative) Urine Blood Negative (Negative) Urine Nitrite Negative (Negative) Urine Bilirubin Small A (Negative) Urine Urobilinogen 1.0 A (0.2) mg/dL Ur Leukocyte Esterase Negative (Negative) U Hyaline Cast (Auto) 3-5 A (0-2) /LPF Urine Microscopic RBC 0-2 (0-5) /HPF Urine Microscopic WBC 0-2 (0-5) /HPF Ur Epithelial Cells Rare (None Seen) /HPF Urine Bacteria None Seen (None Seen) /HPF Urine Culture Reflexed NO (NO) 11/28/23 Range/Units 21:20 WBC 9.2 (4.0-10.5) x10^3/uL RBC 5.77 H (4.1-5.6) x10^6/uL Hgb 16.8 (12.5-18.0) g/dL Hct 49.1 (42-50) % MCV 85.1 (78-100) fL MCH 29.1 (26-32) pg MCHC 34.2 (32-36) g/dL RDW 12.4 (11.5-14.0) % Plt Count 308 (150-450) x10^3/uL MPV 10.7 (7.5-11.0) fL Gran % 76.7 H (36.0-66.0) % Immature Gran % (Auto) 0.5 H (0.00-0.4) % Nucleat RBC Rel Count 0.0 (0.00-0.1) % Eos # (Auto) 0.08 (0-0.5) x10^3/uL Immature Gran # (Auto) 0.05 H (0.00-0.03) x10^3u/L Absolute Lymphs (auto) 1.13 (1.0-4.6) x10^3/uL Absolute Monos (auto) 0.85 (0.0-1.3) x10^3/uL Absolute Nucleated RBC 0.00 (0.00-0.01) x10^3u/L Lymphocytes % 12.3 L (24.0-44.0) % Monocytes % 9.3 (0.0-12.0) % Eosinophils % 0.9 (0.00-5.0) % Basophils % 0.3 (0.0-0.4) % Absolute Granulocytes 7.03 H (1.4-6.9) x10^3/uL Basophils # 0.03 (0-0.4) x10^3/uL Sodium (135-145) mmol/L Potassium (3.5-5.1) mmol/L Chloride (98-107) mmol/L Carbon Dioxide (22-30) mmol/L Anion Gap (5-15) MEQ/L BUN (9-20) mg/dL Creatinine (0.66-1.25) mg/dL Estimated GFR ML/MIN Glucose (74-106) mg/dL Calcium (8.4-10.2) mg/dL Magnesium (1.6-2.3) mg/dL Total Bilirubin (0.2-1.3) mg/dL AST (17-59) U/L ALT (0-50) U/L Alkaline Phosphatase (38-126) U/L Serum Total Protein (6.3-8.2) g/dL Albumin (3.5-5.0) g/dL Amylase (30-110) U/L Lipase (23-300) U/L Urine Color (Yellow) Urine Appearance (Clear) Urine pH (4.6-8.0) Ur Specific [place] (1.005-1.030) Urine Protein (Negative) Urine Glucose (UA) (Negative) mg/dL Urine Ketones (Negative) Urine Blood (Negative) Urine Nitrite (Negative) Urine Bilirubin (Negative) Urine Urobilinogen (0.2) mg/dL Ur Leukocyte Esterase (Negative) U Hyaline Cast (Auto) (0-2) /LPF Urine Microscopic RBC (0-5) /HPF Urine Microscopic WBC (0-5) /HPF Ur Epithelial Cells (None Seen) /HPF Urine Bacteria (None Seen) /HPF Urine Culture Reflexed (NO) - Progress Progress: improved Discussed with : Other (Spoke with & discussed pt with Dr Mackay who accepted pt for observation.) Counseled pt/family regarding: lab results, diagnosis, rad results Medical Desision Making - Diagnostic Testing Diagnostic test were ordered, analyzed, and reviewed by me: Yes Radiological Interpretation: Teleradiologist Report - Departure Departure Disposition: Observation Clinical Impression: abdominal pain, Vomiting, Diarrhea Condition: Stable Critical Care Time: No Referrals: PARVEZ BERMEO DO [Primary Care Provider] - Follow up/PCP as directed
[2023-11-28 21:36] LABS: Absolute Neutrophil Ct (ANC) 7.03 x10^3/uL (1.4-6.9); BASOPHIL % 0.3 % (0.0-0.4); Basophil (Absolute #) 0.03 x10^3/uL (0-0.4); Eosinophil % 0.9 % (0.00-5.0); Eosinophil (Absolute #) 0.08 x10^3/uL (0-0.5); Hematocrit 49.1 % (42-50); Hemoglobin 16.8 g/dL (12.5-18.0); IMMATURE GRAN # 0.05 x10^3u/L (0.00-0.03); IMMATURE GRAN % 0.5 % (0.00-0.4); Lymphocyte (Absolute #) 1.13 x10^3/uL (1.0-4.6); Lymphocytes % 12.3 % (24.0-44.0); Mean Cell Volume 85.1 fL (78-100); Mean Corpuscular Hemoglobin 29.1 pg (26-32); Mean Corpuscular Hgb Concent. 34.2 g/dL (32-36); Mean Platelet Volume 10.7 fL (7.5-11.0); Monocyte (Absolute #) 0.85 x10^3/uL (0.0-1.3); Monocytes % 9.3 % (0.0-12.0); Neutrophil % 76.7 % (36.0-66.0); Platelet Count 308 x10^3/uL (150-450); Red Blood Count 5.77 x10^6/uL (4.1-5.6); Red Cell Distribution Width 12.4 % (11.5-14.0); White Blood Count 9.2 x10^3/uL (4.0-10.5)
[2023-11-28] MEDS: Sodium Chloride 0.9% 1000 ML 1,000 ML IV STA (21:36)
[2023-11-28] MEDS: MORPHINE SULFATE 2 MG INJ IV ONE (21:40)
[2023-11-28] MEDS: Zofran 4 MG/2 ML VIAL IV ONE (21:40)
[2023-11-28 21:43] LABS: ALBUMIN 4.5 g/dL (3.5-5.0); ANION GAP 15.2 MEQ/L (5-15); BILIRUBIN,TOTAL 0.6 mg/dL (0.2-1.3); Calcium 9.8 mg/dL (8.4-10.2); Creatinine 1 1.21 mg/dL (0.66-1.25); EST GLOMERULAR FILTRATION RATE 67.3 ML/MIN; Potassium 4.1 mmol/L (3.5-5.1); Total Protein 8.4 g/dL (6.3-8.2)
[2023-11-28 22:19] LABS: Appearance Clear (Clear); Bacteria None Seen /HPF (None Seen); Bilirubin Small (Negative); Blood Negative (Negative); Epithelial Cells Rare /HPF (None Seen); Glucose, Urine Negative (Negative); Ketones 40 (Negative); Leukocyte Esterase Negative (Negative); Nitrite Negative (Negative); Ph 5.5 (4.6-8.0); Protein,Urine Dip 100 (Negative); RBC 0-2 /HPF (0-5); Specific Gravity >=1.030 (1.005-1.030); WBC 0-2 /HPF (0-5)
[2023-11-28 22:21] LABS: ADD URINE CULTURE? NO (NO)
--- NOTE | 2023-11-28 23:17 | XRAY ---
CLINICAL HISTORY: pain COMPARISON: None. TECHNIQUE: CT of the abdomen and pelvis was performed with axial images as well as sagittal and coronal reconstruction images without intravenous contrast. One of the following dose reduction techniques were utilized for this exam: Automated exposure control, adjustment of the mA and/or kV according to patient size, and use of iterative reconstruction. FINDINGS: Basal thoracic cuts: clear lung bases. Abdomen: The liver is normal in the upper limit and measures 17 cm. No focal or diffuse parenchymal abnormality. The portal vein, intrahepatic biliary radicals, and the bile ducts are normal. Fatty infiltration of the pancreas. The spleen, and adrenal glands are unremarkable. The kidneys are unremarkable. They are normal in size and shape. No calculi or hydronephrosis. Right renal small hypodense area, most likely a cyst is seen measuring 1.1 cm. The gallbladder is normal. No pericholecystic collection or radio-dense calculi in the gall bladder. There is no evidence of significant mesenteric or retroperitoneal lymph node enlargement. Appendix is unremarkable. Stomach and bowel: segment of small intestinal loops relative distension seen in the umbilical and epigastric areas. The tapering transition zone (img [id number] se 2) is seen with no evident obstructive lesion. Umbilical and right inguinal small hernias with omental fat within. Pelvis: The urinary bladder is unremarkable. The prostate is unremarkable. The pelvic vasculature is unremarkable. No evidence of pelvic lymphadenopathy. Skeletal system: No suspicious bony lesion detected. Degenerative changes are seen in the spine with posterior osteophytes causing spinal canal stenosis at L3-S1 levels. IMPRESSION: 1. Segment of small intestinal loops relative distension seen in the umbilical and epigastric areas. Tapering transition zone (img 40-46 se 2) is seen with no evident obstructive lesion. Possible ileus for clinical correlation and follow-up. 2. Fatty infiltration of the pancreas. 3. Umbilical and right inguinal small hernias with omental fat within. 4. Degenerative changes are seen in the spine with posterior osteophytes causing spinal canal stenosis at L3-S1 levels. [facility] office was called at at 10:04 PM HEALTHCARE CONSULTING MANAGER, 11/28/2023 and Ki Eric was informed about significant findings. Electronically Signed by: Ed Brooks MD. (11/28/2023 23:14:10 EDT)
--- NOTE | 2023-11-29 00:04 | PCM.HP ---
History of Present Illness - Chief Complaint Chief Complaint: n/v Date: 11/28/23 History of Present Illness: Mr. RUEDA is a 63 year old male with a past medical history significant for hypertension, hyperlipidemia, and COPD who presents to the ER after consuming some rare prime rib last night and then developing severe nausea and associated abdominal pain. Upon arrival, he was found to have an ileus on CT scan abd. He was given pain medicine, IVFs and has been recommended for admission. He is resting in bed in the ER, still in some discomfort. No fever or chills. No chest pain or shortness of breath. GI symptoms as noted above. No dysuria, hematuria or urgency. Initial labs were unremarkable. - Review of Systems Constitutional: No Fever, No Chills Eyes: No Vision Changes Ears, Nose, & Throat: No Throat Swelling Respiratory: No Cough, No Orthopnea, No Short Of Breath Cardiac: No Chest Pain, No Edema, No Palpitations Abdominal/Gastrointestinal: Abdominal Pain, Nausea, Vomiting Genitourinary Symptoms: No Dysuria, No Frequency, No Hematuria Musculoskeletal: No Arthralgias Skin: No Rash Neurological: No Dizziness, No Focal Weakness Psychological: No Suicidal Ideations Medications & Allergies Home Medications: Home Medication List Atorvastatin Calcium [Lipitor] 10 mg PO DAILY 05/08/23 [History Confirmed 11/28/23] Gabapentin [Neurontin ] 300 mg PO TID 05/08/23 [History Confirmed 11/28/23] PANTOPRAZOLE 40 mg Tablet [Protonix 40MG Tablet] 40 mg PO HS 05/08/23 [History Confirmed 11/28/23] Sertraline HCl 50 mg [Zoloft 50 mg Tablet] 100 mg PO DAILY 05/08/23 [History Confirmed 11/28/23] Apixaban [Eliquis] 5 mg PO BID 11/28/23 [History Confirmed 11/28/23] Fluticasone/Umeclidin/Vilanter [Trelegy Ellipta 200-62.5-25] 1 puff IH DAILY 11/28/23 [History Confirmed 11/28/23] Lisinopril 10 mg [Zestril 10 MG] 10 mg PO DAILY 11/28/23 [History Confirmed 11/28/23] Allergies/Adverse Reactions: Allergies Allergy/AdvReac Type Severity Reaction Status Date / Time Penicillins Allergy Verified 11/28/23 21:04 - Past Medical History Past Medical History: Yes Neurological History: Peripheral Neuropathy Cardiac History: High Cholesterol, Hypertension Respiratory History: Asthma, Pulmonary Embolism, Tuberculosis, Other Endocrine Medical History: Other Musculoskelatal History: Osteoarthritis GI Medical History: GERD, Hernia Comment: NOT VACCINATED FOR COVID. HAD TB IN 1974. HERNIA SURGERY 1987. ANKLE SPACERS INSTALLED IN 1994 DUE TO ARTHRITIS. Lung function is only at 19%. - Past Surgical History Past Surgical History: Yes GI Surgical History: Hernia Repair Musculskeletal Surgical Hx: Orthopedic Surgery Other Surgical History: ankle, laprascopic rt knee meniscus surgery - Social History Smoking Status: Former smoker Exposure to second hand smoke: No Alcohol: None Drug Use: none - Social Determinants of Health Will the patient participate in the screening: Yes Do you worry about a steady place to live?: No Do you have any problems with any of the following?: No known problems In the past 12 months,have you had to go without utilities?: No Have you or anyone in your house had to go without enough: No Transportation Issues: No Has anyone in your support network made you feel unsafe?: No - Physical Exam Vital Signs: Vital Signs - 24 hr Temp Pulse Resp BP BP Pulse Ox 11/28/23 23:54 94 L 11/28/23 23:00 68 19 148/88 91 L 11/28/23 22:30 67 20 136/95 91 L 11/28/23 22:00 75 14 142/100 91 L 11/28/23 21:34 79 20 152/96 94 L 11/28/23 21:30 71 20 152/96 93 L 11/28/23 20:50 97.1 F 88 20 161/104 94 L General Appearance: no apparent distress Neurologic Exam: alert Ears, Nose, Throat Exam: dry mucous membranes Neck Exam: supple Respiratory Exam: No respiratory distress Cardiovascular Exam: regular rate/rhythm Gastrointestinal/Abdomen Exam: tenderness, distention, rebound Extremity Exam: No pedal edema, No swelling Skin Exam: normal color, No rash Results - Labs Lab/Micro Results: Lab Results-Last 24 Hours 11/28/23 11/28/23 11/28/23 Range/Units 21:20 21:20 21:20 WBC 9.2 (4.0-10.5) x10^3/uL RBC 5.77 H (4.1-5.6) x10^6/uL Hgb 16.8 (12.5-18.0) g/dL Hct 49.1 (42-50) % MCV 85.1 (78-100) fL MCH 29.1 (26-32) pg MCHC 34.2 (32-36) g/dL RDW 12.4 (11.5-14.0) % Plt Count 308 (150-450) x10^3/uL MPV 10.7 (7.5-11.0) fL Gran % 76.7 H (36.0-66.0) % Immature Gran % (Auto) 0.5 H (0.00-0.4) % Nucleat RBC Rel Count 0.0 (0.00-0.1) % Eos # (Auto) 0.08 (0-0.5) x10^3/uL Immature Gran # (Auto) 0.05 H (0.00-0.03) x10^3u/L Absolute Lymphs (auto) 1.13 (1.0-4.6) x10^3/uL Absolute Monos (auto) 0.85 (0.0-1.3) x10^3/uL Absolute Nucleated RBC 0.00 (0.00-0.01) x10^3u/L Lymphocytes % 12.3 L (24.0-44.0) % Monocytes % 9.3 (0.0-12.0) % Eosinophils % 0.9 (0.00-5.0) % Basophils % 0.3 (0.0-0.4) % Absolute Granulocytes 7.03 H (1.4-6.9) x10^3/uL Basophils # 0.03 (0-0.4) x10^3/uL Sodium 138 (135-145) mmol/L Potassium 4.1 (3.5-5.1) mmol/L Chloride 104 (98-107) mmol/L Carbon Dioxide 23 (22-30) mmol/L Anion Gap 15.2 H (5-15) MEQ/L BUN 20 (9-20) mg/dL Creatinine 1.21 (0.66-1.25) mg/dL Estimated GFR 67.3 ML/MIN Glucose 127 H (74-106) mg/dL Calcium 9.8 (8.4-10.2) mg/dL Magnesium 1.8 (1.6-2.3) mg/dL Total Bilirubin 0.60 (0.2-1.3) mg/dL AST 33 (17-59) U/L ALT 37 (0-50) U/L Alkaline Phosphatase 97 (38-126) U/L Serum Total Protein 8.4 H (6.3-8.2) g/dL Albumin 4.5 (3.5-5.0) g/dL Amylase 102 (30-110) U/L Lipase 77 (23-300) U/L Urine Color (Yellow) Urine Appearance (Clear) Urine pH (4.6-8.0) Ur Specific [place] (1.005-1.030) Urine Protein (Negative) Urine Glucose (UA) (Negative) mg/dL Urine Ketones (Negative) Urine Blood (Negative) Urine Nitrite (Negative) Urine Bilirubin (Negative) Urine Urobilinogen (0.2) mg/dL Ur Leukocyte Esterase (Negative) U Hyaline Cast (Auto) (0-2) /LPF Urine Microscopic RBC (0-5) /HPF Urine Microscopic WBC (0-5) /HPF Ur Epithelial Cells (None Seen) /HPF Urine Bacteria (None Seen) /HPF Urine Culture Reflexed (NO) 11/28/23 Range/Units 22:09 WBC (4.0-10.5) x10^3/uL RBC (4.1-5.6) x10^6/uL Hgb (12.5-18.0) g/dL Hct (42-50) % MCV (78-100) fL MCH (26-32) pg MCHC (32-36) g/dL RDW (11.5-14.0) % Plt Count (150-450) x10^3/uL MPV (7.5-11.0) fL Gran % (36.0-66.0) % Immature Gran % (Auto) (0.00-0.4) % Nucleat RBC Rel Count (0.00-0.1) % Eos # (Auto) (0-0.5) x10^3/uL Immature Gran # (Auto) (0.00-0.03) x10^3u/L Absolute Lymphs (auto) (1.0-4.6) x10^3/uL Absolute Monos (auto) (0.0-1.3) x10^3/uL Absolute Nucleated RBC (0.00-0.01) x10^3u/L Lymphocytes % (24.0-44.0) % Monocytes % (0.0-12.0) % Eosinophils % (0.00-5.0) % Basophils % (0.0-0.4) % Absolute Granulocytes (1.4-6.9) x10^3/uL Basophils # (0-0.4) x10^3/uL Sodium (135-145) mmol/L Potassium (3.5-5.1) mmol/L Chloride (98-107) mmol/L Carbon Dioxide (22-30) mmol/L Anion Gap (5-15) MEQ/L BUN (9-20) mg/dL Creatinine (0.66-1.25) mg/dL Estimated GFR ML/MIN Glucose (74-106) mg/dL Calcium (8.4-10.2) mg/dL Magnesium (1.6-2.3) mg/dL Total Bilirubin (0.2-1.3) mg/dL AST (17-59) U/L ALT (0-50) U/L Alkaline Phosphatase (38-126) U/L Serum Total Protein (6.3-8.2) g/dL Albumin (3.5-5.0) g/dL Amylase (30-110) U/L Lipase (23-300) U/L Urine Color Dark Yellow (Yellow) Urine Appearance Clear (Clear) Urine pH 5.5 (4.6-8.0) Ur Specific [place] >=1.030 A (1.005-1.030) Urine Protein 100 A (Negative) Urine Glucose (UA) Negative (Negative) mg/dL Urine Ketones 40 A (Negative) Urine Blood Negative (Negative) Urine Nitrite Negative (Negative) Urine Bilirubin Small A (Negative) Urine Urobilinogen 1.0 A (0.2) mg/dL Ur Leukocyte Esterase Negative (Negative) U Hyaline Cast (Auto) 3-5 A (0-2) /LPF Urine Microscopic RBC 0-2 (0-5) /HPF Urine Microscopic WBC 0-2 (0-5) /HPF Ur Epithelial Cells Rare (None Seen) /HPF Urine Bacteria None Seen (None Seen) /HPF Urine Culture Reflexed NO (NO) - Radiology Impressions Radiology Exams & Impressions: Radiology Procedures Category Date Time Status ABDOMEN AND PELVIS W/0 CONTRAS [CT] Stat Exams 11/28/23 21:31 Completed Assessment/Plan (1) Ileus Current Visit: Yes Status: Acute Assessment & Plan: Likely from consumption of raw/rare prime rib 1. Admit to hospital 2. NPO, start anti-emetics, advance as tolerated 3. IVFs 4. Pain control Code(s): K56.7 - ILEUS, UNSPECIFIED (2) Essential (primary) hypertension Current Visit: Yes Status: Acute Assessment & Plan: Under reasonable control, exacerbated by pain 1. Continue bp meds 2. Low Na diet 3. Monitor blood pressure readings Code(s): I10 - ESSENTIAL (PRIMARY) HYPERTENSION (3) Pulmonary embolism Current Visit: Yes Status: Acute Assessment & Plan: On Eliquis 1. Continue anticoagulation 2. Monitor O2 sats Code(s): I26.99 - OTHER PULMONARY EMBOLISM WITHOUT ACUTE COR PULMONALE Telemedicine Encounter - Telemedicine Encounter Telemedicine Encounter: The entirety of this encounter was performed via Telemedicine"
[2023-11-29] MEDS ORDERED: Zofran 4 MG/2 ML VIAL IV PRN (01:25)
[2023-11-29] MEDS ORDERED: MORPHINE SULFATE 2 MG INJ IV PRN (01:25)
[2023-11-29] MEDS ORDERED: FEVERALL 650 MG PR PRN (01:46)
[2023-11-29] MEDS ORDERED: Hydromorphone 1 mg/ml Injection IV PRN (01:49)
[2023-11-29] MEDS: Sodium Chloride 0.9% 1000 ML 1,000 ML IV SCH (01:49)
[2023-11-29] MEDS: Zofran 4 MG/2 ML VIAL IV PRN (01:55)
[2023-11-29 02:36] VITALS: O2SAT 92
[2023-11-29 05:30] LABS: Absolute Neutrophil Ct (ANC) 6.59 x10^3/uL (1.4-6.9); BASOPHIL % 0.4 % (0.0-0.4); Basophil (Absolute #) 0.04 x10^3/uL (0-0.4); Eosinophil % 1.5 % (0.00-5.0); Eosinophil (Absolute #) 0.14 x10^3/uL (0-0.5); Hematocrit 45.6 % (42-50); Hemoglobin 15.2 g/dL (12.5-18.0); IMMATURE GRAN # 0.06 x10^3u/L (0.00-0.03); IMMATURE GRAN % 0.6 % (0.00-0.4); Lymphocyte (Absolute #) 1.52 x10^3/uL (1.0-4.6); Lymphocytes % 16.1 % (24.0-44.0); Mean Cell Volume 86.7 fL (78-100); Mean Corpuscular Hemoglobin 28.9 pg (26-32); Mean Corpuscular Hgb Concent. 33.3 g/dL (32-36); Mean Platelet Volume 10.7 fL (7.5-11.0); Monocyte (Absolute #) 1.09 x10^3/uL (0.0-1.3); Monocytes % 11.5 % (0.0-12.0); Neutrophil % 69.9 % (36.0-66.0); Platelet Count 262 x10^3/uL (150-450); Red Blood Count 5.26 x10^6/uL (4.1-5.6); Red Cell Distribution Width 12.7 % (11.5-14.0); White Blood Count 9.4 x10^3/uL (4.0-10.5)
[2023-11-29 06:24] LABS: ALBUMIN 3.9 g/dL (3.5-5.0); ANION GAP 12.9 MEQ/L (5-15); BILIRUBIN,TOTAL 0.5 mg/dL (0.2-1.3); Calcium 9.1 mg/dL (8.4-10.2); Creatinine 1 1.2 mg/dL (0.66-1.25); Potassium 4.5 mmol/L (3.5-5.1); Total Protein 7.3 g/dL (6.3-8.2)
--- NOTE | 2023-11-29 07:55 | XRAY ---
Indication: Pain, nausea, vomiting, and diarrhea. Comparison: None 2 view abdomen demonstrates mild air distended small and large bowel loops with fluid leveling, ileus versus enterocolitis. No focal bowel dilatation/obstruction or free air. Solid organs unremarkable. Osseous structures intact with mild degenerative changes.
[2023-11-29] MEDS ORDERED: ENOXAPARIN SODIUM SQ SCH (10:00)
[2023-11-29] MEDS: ELIQUIS 2.5 MG TABLET PO SCH (11:20)
[2023-11-29] MEDS: Protonix 40MG Tablet PO SCH (11:20)
[2023-11-29 12:06] VITALS: BP 131/69; PULSE 67; RESP 19; TEMP 98.2
--- NOTE | 2023-11-29 13:06 | PCM.DS ---
Discharge Summary Date of Admission: 11/29/23 01:22 Date of Discharge: 11/29/23 Admitting Physician: LINDA PAINTING MD Primary Care Provider: PARVEZ BERMEO DO Allergies Allergies Penicillins Allergy (Verified 11/28/23 21:04) Hospital Summary - Hospital Course Hospital Course: Mr. RUEDA is a 63 year old male with a past medical history significant for h ypertension, hyperlipidemia, and COPD who presents to the ER after consuming some rare prime rib last night and then developing severe nausea and associated abdominal pain. Upon arrival, he was found to have an ileus on CT scan abd. He was given pain medicine, IVFs and has been recommended for admission. GI symptoms have resolved. Patient has tolerated a full diet and requesting discharge. Labs and vitals with no abnormalities. Patient stable for discharge. Discharge Note New Diagnosis: New Medications: Follow Up: Results pending: Outpatient testing to order: Latest Assessment & Plan (1) Ileus Current Visit: Yes Status: Acute Assessment & Plan: Likely from consumption of raw/rare prime rib 1. Admit to hospital 2. NPO, start anti-emetics, advance as tolerated 3. IVFs 4. Pain control Code(s): K56.7 - ILEUS, UNSPECIFIED (2) Essential (primary) hypertension Current Visit: Yes Status: Acute Assessment & Plan: Under reasonable control, exacerbated by pain 1. Continue bp meds 2. Low Na diet 3. Monitor blood pressure readings Code(s): I10 - ESSENTIAL (PRIMARY) HYPERTENSION (3) Pulmonary embolism Current Visit: Yes Status: Acute Assessment & Plan: On Eliquis 1. Continue anticoagulation 2. Monitor O2 sats Code(s): I26.99 - OTHER PULMONARY EMBOLISM WITHOUT ACUTE COR PULMONALE Telemedicine Encounter I spent 35 minutes [id number] with the patient on the day of discharge performing discharge exam, discussing hospital stay and discharge instructions with patient and caregivers, preparation of discharge records, prescriptions & referral forms and addressing any questions/concerns the patient had as documented above. - Vitals & Intake/Output Vital Signs: Vital Signs Temperature 98.2 F 11/29/23 12:00 Pulse Rate 67 11/29/23 12:00 Respiratory Rate 19 11/29/23 12:00 Blood Pressure 131/69 11/29/23 12:00 O2 Sat by Pulse Oximetry 92 L 04/07/24 12:00 Intake & Output: Intake & Output 11/27/23 11/28/23 11/29/23 11/30/23 11:59 11:59 11:59 11:59 Intake Total 120 Balance 120 Weight 129.6 kg - Lab Result Diagrams: 11/29/23 05:25 11/29/23 05:25 Lab Results-Last 24 Hrs: Lab Results-Last 24 Hours 11/28/23 11/28/23 11/28/23 Range/Units 21:20 21:20 21:20 WBC 9.2 (4.0-10.5) x10^3/uL RBC 5.77 H (4.1-5.6) x10^6/uL Hgb 16.8 (12.5-18.0) g/dL Hct 49.1 (42-50) % MCV 85.1 (78-100) fL MCH 29.1 (26-32) pg MCHC 34.2 (32-36) g/dL RDW 12.4 (11.5-14.0) % Plt Count 308 (150-450) x10^3/uL MPV 10.7 (7.5-11.0) fL Gran % 76.7 H (36.0-66.0) % Immature Gran % (Auto) 0.5 H (0.00-0.4) % Nucleat RBC Rel Count 0.0 (0.00-0.1) % Eos # (Auto) 0.08 (0-0.5) x10^3/uL Immature Gran # (Auto) 0.05 H (0.00-0.03) x10^3u/L Absolute Lymphs (auto) 1.13 (1.0-4.6) x10^3/uL Absolute Monos (auto) 0.85 (0.0-1.3) x10^3/uL Absolute Nucleated RBC 0.00 (0.00-0.01) x10^3u/L Lymphocytes % 12.3 L (24.0-44.0) % Monocytes % 9.3 (0.0-12.0) % Eosinophils % 0.9 (0.00-5.0) % Basophils % 0.3 (0.0-0.4) % Absolute Granulocytes 7.03 H (1.4-6.9) x10^3/uL Basophils # 0.03 (0-0.4) x10^3/uL Sodium 138 (135-145) mmol/L Potassium 4.1 (3.5-5.1) mmol/L Chloride 104 (98-107) mmol/L Carbon Dioxide 23 (22-30) mmol/L Anion Gap 15.2 H (5-15) MEQ/L BUN 20 (9-20) mg/dL Creatinine 1.21 (0.66-1.25) mg/dL Estimated GFR 67.3 ML/MIN Glucose 127 H (74-106) mg/dL Calcium 9.8 (8.4-10.2) mg/dL Magnesium 1.8 (1.6-2.3) mg/dL Total Bilirubin 0.60 (0.2-1.3) mg/dL AST 33 (17-59) U/L ALT 37 (0-50) U/L Alkaline Phosphatase 97 (38-126) U/L Serum Total Protein 8.4 H (6.3-8.2) g/dL Albumin 4.5 (3.5-5.0) g/dL Amylase 102 (30-110) U/L Lipase 77 (23-300) U/L Urine Color (Yellow) Urine Appearance (Clear) Urine pH (4.6-8.0) Ur Specific [place] (1.005-1.030) Urine Protein (Negative) Urine Glucose (UA) (Negative) mg/dL Urine Ketones (Negative) Urine Blood (Negative) Urine Nitrite (Negative) Urine Bilirubin (Negative) Urine Urobilinogen (0.2) mg/dL Ur Leukocyte Esterase (Negative) U Hyaline Cast (Auto) (0-2) /LPF Urine Microscopic RBC (0-5) /HPF Urine Microscopic WBC (0-5) /HPF Ur Epithelial Cells (None Seen) /HPF Urine Bacteria (None Seen) /HPF Urine Culture Reflexed (NO) 11/28/23 11/29/23 11/29/23 Range/Units 22:09 05:25 05:25 WBC 9.4 (4.0-10.5) x10^3/uL RBC 5.26 (4.1-5.6) x10^6/uL Hgb 15.2 (12.5-18.0) g/dL Hct 45.6 (42-50) % MCV 86.7 (78-100) fL MCH 28.9 (26-32) pg MCHC 33.3 (32-36) g/dL RDW 12.7 (11.5-14.0) % Plt Count 262 (150-450) x10^3/uL MPV 10.7 (7.5-11.0) fL Gran % 69.9 H (36.0-66.0) % Immature Gran % (Auto) 0.6 H (0.00-0.4) % Nucleat RBC Rel Count 0.0 (0.00-0.1) % Eos # (Auto) 0.14 (0-0.5) x10^3/uL Immature Gran # (Auto) 0.06 H (0.00-0.03) x10^3u/L Absolute Lymphs (auto) 1.52 (1.0-4.6) x10^3/uL Absolute Monos (auto) 1.09 (0.0-1.3) x10^3/uL Absolute Nucleated RBC 0.00 (0.00-0.01) x10^3u/L Lymphocytes % 16.1 L (24.0-44.0) % Monocytes % 11.5 (0.0-12.0) % Eosinophils % 1.5 (0.00-5.0) % Basophils % 0.4 (0.0-0.4) % Absolute Granulocytes 6.59 (1.4-6.9) x10^3/uL Basophils # 0.04 (0-0.4) x10^3/uL Sodium 137 (135-145) mmol/L Potassium 4.5 (3.5-5.1) mmol/L Chloride 107 (98-107) mmol/L Carbon Dioxide 22 (22-30) mmol/L Anion Gap 12.9 (5-15) MEQ/L BUN 20 (9-20) mg/dL Creatinine 1.20 (0.66-1.25) mg/dL Estimated GFR 68.0 ML/MIN Glucose 104 (74-106) mg/dL Calcium 9.1 (8.4-10.2) mg/dL Magnesium (1.6-2.3) mg/dL Total Bilirubin 0.50 (0.2-1.3) mg/dL AST 29 (17-59) U/L ALT 31 (0-50) U/L Alkaline Phosphatase 76 (38-126) U/L Serum Total Protein 7.3 (6.3-8.2) g/dL Albumin 3.9 (3.5-5.0) g/dL Amylase (30-110) U/L Lipase (23-300) U/L Urine Color Dark Yellow (Yellow) Urine Appearance Clear (Clear) Urine pH 5.5 (4.6-8.0) Ur Specific [place] >=1.030 A (1.005-1.030) Urine Protein 100 A (Negative) Urine Glucose (UA) Negative (Negative) mg/dL Urine Ketones 40 A (Negative) Urine Blood Negative (Negative) Urine Nitrite Negative (Negative) Urine Bilirubin Small A (Negative) Urine Urobilinogen 1.0 A (0.2) mg/dL Ur Leukocyte Esterase Negative (Negative) U Hyaline Cast (Auto) 3-5 A (0-2) /LPF Urine Microscopic RBC 0-2 (0-5) /HPF Urine Microscopic WBC 0-2 (0-5) /HPF Ur Epithelial Cells Rare (None Seen) /HPF Urine Bacteria None Seen (None Seen) /HPF Urine Culture Reflexed NO (NO) Micro Results-Entire Visit: Accuchecks Date 11/29/23 Time 12:05 - Radiology Exams Ordered Rad Exams-Entire Visit: Radiology Procedures Category Date Time Status ABDOMEN 2 VIEW Routine Exams 11/29/23 01:25 Completed ABDOMEN AND PELVIS W/0 CONTRAS [CT] Stat Exams 11/28/23 21:31 Completed - Procedures and Test Procedures and Tests throughout Hospitalization: Therapy Orders & Screens 11/29/23 02:39 RT Screen per Nursing Assess ONCE Comment: Protocol Order Physician Instructions: Greater than 3 points order RT Admission Screen Reason For Exam: Triggered on Admission Diagnosis: Abdominal pain, vomiting, diarrhea Diagnosis: Abdominal pain, vomiting, diarrhea Pneumonia: No Home O2: No Asthma: Yes CHF: No Home CPAP/BIPAP: No Home Nebs/MDI: Yes Total Points: 9 Discharge Exam General Appearance: no apparent distress Neurologic Exam: alert, oriented x 3, cooperative Eye Exam: PERRL Ears, Nose, Throat Exam: normal ENT inspection Neck Exam: normal inspection Respiratory Exam: normal breath sounds, lungs clear Cardiovascular Exam: regular rate/rhythm, normal heart sounds Gastrointestinal/Abdomen Exam: soft, normal bowel sounds Male Genitalia Exam: deferred Rectal Exam: deferred Back Exam: normal inspection Extremity Exam: normal inspection Final Diagnosis/Problem List - Final Discharge Diagnosis/Problem (1) Diarrhea Current Visit: Yes Status: Resolved Code(s): R19.7 - DIARRHEA, UNSPECIFIED (2) Essential (primary) hypertension Current Visit: Yes Status: Chronic Code(s): I10 - ESSENTIAL (PRIMARY) HYPERTENSION (3) Ileus Current Visit: Yes Status: Resolved Code(s): K56.7 - ILEUS, UNSPECIFIED (4) Pulmonary embolism Current Visit: Yes Status: Chronic Code(s): I26.99 - OTHER PULMONARY EMBOLISM WITHOUT ACUTE COR PULMONALE (5) Vomiting Current Visit: Yes Status: Resolved Code(s): R11.10 - VOMITING, UNSPECIFIED - Discharge Disposition: Home, Self-Care Condition: Stable Prescriptions: New Ondansetron ODT 4 MG [Zofran Odt 4 mg] 4 mg PO Q6H PRN PRN #10 tablet PRN Reason: Nausea Continue PANTOPRAZOLE 40 mg Tablet [Protonix 40MG Tablet] 40 mg PO HS Sertraline HCl 50 mg [Zoloft 50 mg Tablet] 100 mg PO DAILY Gabapentin [Neurontin ] 300 mg PO TID Atorvastatin Calcium [Lipitor] 10 mg PO DAILY Lisinopril 10 mg [Zestril 10 MG] 10 mg PO DAILY Fluticasone/Umeclidin/Vilanter [Trelegy Ellipta 200-62.5-25] 1 puff IH DAILY Apixaban [Eliquis] 5 mg PO BID Albuterol Common Canister [Ventolin Common Canister] 2 puff IH Q4H PRN PRN PRN Reason: Shortness Of Breath Follow up with: PARVEZ BERMEO DO [Primary Care Provider] -
== END 2023-11-29 14:04 | disposition home or self-care (01) ==
LOC: ED 20:41 → MED SURG 11-29 01:22
PROVIDERS: ADMIT Internal Medicine Nephrology; ATTEND Internal Medicine Nephrology
DX: R19.7 Diarrhea, unspecified (principal); K56.7 Ileus, unspecified; I10 Essential (primary) hypertension; I26.99 Other pulmonary embolism without acute cor pulmonale; R11.10 Vomiting, unspecified; Z79.899 Other long term (current) drug therapy; E78.5 Hyperlipidemia, unspecified
CPT/HCPCS: 36000; 36415; 74021; 74176; 80053; 81001; 82150; 83690; 83735; 85025; 93268; 96360; 96374; 96375; 99284; J2270; J2405; Q3014; A9270-GY; G0378